=== PATIENT | male | born 1980 | race African-American/Black ===

== ENCOUNTER 2016-09-04 23:36 | Emergency (ER) | payer SELFPAY ==
[2016-09-05 00:09] VITALS: BP 142/76
--- NOTE | 2016-09-07 09:36 | EKG REPORT ---
SEVERITY:- NORMAL ECG - SINUS RHYTHM : Confirmed by: Jonas Barry 07-Sep-2016 09:35:40
== END 2016-09-05 04:00 | disposition left against medical advice (07) ==
LOC: ER 23:36
DX: Z53.9 Procedure and treatment not carried out, unspecified reason (principal); R07.9 Chest pain, unspecified
CPT/HCPCS: 93005; 93010

== ENCOUNTER 2017-12-27 10:32 | Emergency (ER) | payer SELFPAY ==
[2017-12-27 10:41] VITALS: BP 140/69
--- NOTE | 2017-12-27 10:50 | ER Document Report ---
HPI - HPI Pain Level: 2 Notes: Patient is a 37-year-old male with a history of eczema who presents to the ED complaining of exacerbation of his eczema to his flexural areas on his arms and a little bit to his neck with associated intermittent pruritis. Patient states that the weather changes cause exacerbation. Patient states that he was given betamethasone as visit last year which he used sparingly and works really well for him. Patient is requesting this cream again. He has no other significant past medical history. He is eating and drinking without any difficulties. He is urinating normally and having normal bowel movements. Denies any insect bite , new clothes, detergents, soaps, or travel. Denies any headache, fever, neck pain, URI, sore throat, chest pain, palpitations, syncope, cough, shortness of breath, wheeze, dyspnea, abdominal pain, nausea/vomiting/diarrhea, urinary retention, dysuria, hematuria. - ROS Systems Reviewed and Negative: Yes All other systems reviewed and negative - CONSTITUTIONAL Constitutional: DENIES: Fever, Chills - EENT EENT: DENIES: Sore Throat, Ear Pain, Eye problems - NEURO Neurology: DENIES: Headache, Weakness, Vision blurred, Dizzinesss / Vertigo - CARDIOVASCULAR Cardiovascular: DENIES: Chest pain - RESPIRATORY Respiratory: DENIES: Trouble Breathing, Coughing - GASTROINTESTINAL Gastrointestinal: DENIES: Abdominal Pain, Black / Bloody Stools - MUSCULOSKELETAL Musculoskeletal: DENIES: Extremity pain Past Medical History - Social History Smoking Status: Never Smoker Chew tobacco use (# tins/day): No Frequency of alcohol use: None Drug Abuse: None Family History: Reviewed & Not Pertinent Patient has suicidal ideation: No Patient has homicidal ideation: No Renal/ Medical History: Denies: Hx Peritoneal Dialysis - Immunizations Immunizations up to date: Yes Hx Diphtheria, Pertussis, Tetanus Vaccination: Yes Vertical Provider Document - CONSTITUTIONAL Agree With Documented VS: Yes Notes: PHYSICAL EXAMINATION: GENERAL: Well-appearing, well-nourished and in no acute distress. HEAD: Atraumatic, normocephalic. EYES: Pupils equal round and reactive to light, extraocular movements intact, sclera anicteric, conjunctiva are normal. ENT: Nares patent and without discharge. oropharynx clear without exudates. No tonsilar hypertrophy or erythema. Moist mucous membranes. NECK: Normal range of motion, supple without lymphadenopathy LUNGS: Breath sounds clear to auscultation bilaterally and equal. No wheezes rales or rhonchi. HEART: Regular rate and rhythm without murmurs, rubs, gallops. Musculoskeletal: FROM to passive/active. Strength 5+/5. Extremities: No cyanosis, clubbing, or edema b/l. Peripheral pulses 2+. Capillary refill less than 3 seconds. NEUROLOGICAL: Normal speech, normal gait. PSYCH: Normal mood, normal affect. SKIN: dry eczematous rash to the flexural areas to the arms and minimally to the inferior neck. Non-tender. No abscess/fluctuance, induration, streaks, or purulence. - INFECTION CONTROL TRAVEL OUTSIDE OF THE [place] IN LAST 30 DAYS: No Course - Re-evaluation Re-evalutation: 12/27/17 10:54 Patient is an afebrile, well-hydrated, 37-year-old male who presents to the ED with a rash which I suspect to be eczema. Vitals are acceptable without any significant tachycardia, tachypnea, or hypoxia. PE is otherwise unremarkable. No labs or imaging warranted at this time based on H&P. Patient declined any steroid injection or oral steroid medications. Patient is just requesting the betamethasone that he was given last year. I will refill this for him which he uses as needed. Conservative measures for symptoms. Recheck with your PCM in 3 -5 days. Consider consult with dermatology. Return to the ED with any worsening/concerning symptoms otherwise as reviewed in discharge. Patient is in agreement. - Vital Signs Vital signs: Temp Pulse Resp BP Pulse Ox 98.4 F 89 16 140/69 H 96 12/27/17 10:39 12/27/17 10:39 12/27/17 10:39 12/27/17 10:39 12/27/17 10:39 Discharge - Discharge Clinical Impression: Eczema Qualifiers: Eczema type: flexural Qualified Code(s): L20.82 - Flexural eczema Condition: Stable Disposition: HOME, SELF-CARE Instructions: Atopic Dermatitis (Eczema) ([facility]) Additional Instructions: Keep the skin clean Wash with mild soap and water Tylenol/ibuprofen if needed Monitor for any worsening symptoms Recheck with your PCM in 3-5 days Consider consult with dermatology for ongoing/worsening symptoms Return to the ED with any worsening symptoms and/or development of fever, headache, chest pain, palpitations, syncope, shortness of breath, trouble breathing, abdominal pain, n/v/d, abscess, purulent discharge, red streaks, worsening swelling, or other worsening symptoms that are concerning to you. Prescriptions: Betamet Diprop/Prop Gly [Betamethasone Dp Aug 0.05% Cream] 1 applic TP BID #1 tube Forms: Elevated Blood Pressure, Smoking Cessation Education Referrals: EDUARDO JOHNSON DO [ACTIVE STAFF] - Follow up as needed
== END 2017-12-27 10:57 | disposition home or self-care (01) ==
LOC: ER 10:32
DX: L20.82 Flexural eczema (principal)
CPT/HCPCS: 99282

== ENCOUNTER 2018-03-20 22:28 | Emergency (ER) | payer SELFPAY ==
[2018-03-20 22:51] VITALS: BP 140/82
--- NOTE | 2018-03-20 23:12 | ER Document Report ---
ED General - General Chief Complaint: Skin Problem Stated Complaint: SKIN PROBLEMS Time Seen by Provider: 03/20/18 23:00 Notes: Patient is a 37-year-old male who presents with complaint of a rash. He said this rash since he was a kid. He has been told his eczema several times. Says that she is on his back and also on the extensor surfaces of his arms. Says gets worse in his back when he is sitting against a leather seats in his car. He says sometimes sweat will make it worse. He is on betamethasone cream. Usually comes here when he runs out. He says he is run out again and needs more. Said it does help with not fully taken away. He is requesting if there is something else he can do. He says he does use using cream. He is never seen a curriculum developer about this. He denies any fevers. No vomiting. TRAVEL OUTSIDE OF THE [place] IN LAST 30 DAYS: No - Related Data Allergies/Adverse Reactions: Penicillins Allergy (Verified 12/27/17 10:34) Past Medical History - Social History Smoking Status: Never Smoker Frequency of alcohol use: None Drug Abuse: None Family History: Reviewed & Not Pertinent Renal/ Medical History: Denies: Hx Peritoneal Dialysis - Immunizations Immunizations up to date: Yes Hx Diphtheria, Pertussis, Tetanus Vaccination: Yes Review of Systems - Review of Systems Notes: My Normal Review Basic REVIEW OF SYSTEMS: CONSTITUTIONAL : Denies fever, chills, or sweats. Denies recent illness. RESPIRATORY: Denies cough, cold, or chest congestion. Denies shortness of breath, difficulty breathing, or wheezing. GASTROINTESTINAL: Denies abdominal pain. Denies nausea, vomiting, or diarrhea. MUSCULOSKELETAL: Denies neck or back pain or joint pain or swelling. SKIN: Rash ALL OTHER SYSTEMS REVIEWED AND NEGATIVE. Physical Exam - Vital signs Vitals: Temp Pulse Resp BP Pulse Ox 98.3 F 76 16 140/82 H 96 03/20/18 22:49 03/20/18 22:49 03/20/18 22:49 03/20/18 22:49 03/20/18 22:49 - Notes Notes: General Appearance: Well nourished, alert, cooperative, no acute distress, no obvious discomfort. well appearing Vitals: reviewed, See vital signs table. Eyes: PERRL, EOMI, Conjuctiva clear Skin: blanchable mild eyrthematous skin erruption scattered across the back, abdomen, and over extensor services of arms. Non painful to palpation. is puritic Neuro: speech clear, oriented x 3, normal affect, responds appropriately to questions. Course - Re-evaluation Re-evalutation: 03/20/18 23:34 I feel the patient is safe to be discharged home. Patient looks well. Patient has a rash that is chronic recurring. I informed him the importance of following up with dermatology. Informed him that I would re-prescribe his betamethasone cream but he must use it sparingly. I talked him at length about using non-perfumed non-dyed soaps that have lotion in them. I encouraged him to return to ER if he has any skin breakdown, fevers, or feels unwell. Patient agrees with plan and will be discharged home. Dictation of this chart was performed using voice recognition software; therefore, there may be some unintended grammatical errors. - Vital Signs Vital signs: Temp Pulse Resp BP Pulse Ox 98.3 F 76 16 140/82 H 96 03/20/18 22:49 03/20/18 22:49 03/20/18 22:49 03/20/18 22:49 03/20/18 22:49 Discharge - Discharge Clinical Impression: Rash Condition: Good Disposition: HOME, SELF-CARE Additional Instructions: Apply a thin layer of the betamethasone cream to your rash daily. Please do not apply more than once a day or your skin will thin and become more irritated. Please follow up with a curriculum developer for reevaluation. Please continue to use Eucerin cream. please return to the ER if you have fevers or break down of your skin. Please use soaps that have lotion and are dye free and perfume free. Prescriptions: Betamet Diprop/Prop Gly [Betamethasone Dp Aug 0.05% Cream] 1 applic TP DAILY PRN #1 tube PRN Reason:
== END 2018-03-20 23:26 | disposition home or self-care (01) ==
LOC: ER 22:28
DX: R21 Rash and other nonspecific skin eruption (principal)
CPT/HCPCS: 99283

== ENCOUNTER 2019-09-14 16:51 | Emergency (ER) | payer SELFPAY ==
[2019-09-14 16:57] VITALS: BP 160/105
[2019-09-14] MEDS ORDERED: DIPH/PERTUSS(ACELL)/TETANUS VAC/PF 0.5 ML SYR (>=10YO) IM ONE (17:26)
--- NOTE | 2019-09-14 17:46 | RADIOLOGY REPORT (SQ) ---
EXAM DESCRIPTION: FOOT RIGHT COMPLETE IMAGES COMPLETED DATE/TIME: 09/14/2019 5:38 pm REASON FOR STUDY: stepped on nail COMPARISON: None. NUMBER OF VIEWS: Three views. TECHNIQUE: AP, lateral and oblique radiographic images acquired of the right foot. LIMITATIONS: None. FINDINGS: MINERALIZATION: Normal. BONES: No acute fracture or dislocation. JOINTS: The normal tarsometatarsal alignment is preserved. SOFT TISSUES: No soft tissue swelling or radiopaque foreign body. OTHER: No other finding. IMPRESSION: No acute osseous abnormality of the right foot. TECHNICAL DOCUMENTATION: JOB ID: [id number] 2010 [employer]- All Rights Reserved Reading location - IP/workstation name: [email or web address]
[2019-09-14] MEDS ORDERED: CIPROFLOXACIN HCL/DEXAMETH OTIC DROP 7.5 ML AD ONE (18:25)
--- NOTE | 2019-09-14 18:27 | ER Document Report ---
HPI - HPI Time Seen by Provider: 09/14/19 17:17 Pain Level: 3 Context: Patient is a 39-year-old male who presents the emergency department with 2 complaints. His first complaint is that he stepped on a joana nail prior to arrival. Patient is unsure if he is up-to-date with his tetanus immunization. He also has complaints of right ear pain. States that his been following him for about a week. He has been using [id number] drops, but has not had any relief of his pain. - ROS Systems Reviewed and Negative: Yes All other systems reviewed and negative - CONSTITUTIONAL Constitutional: DENIES: Fever, Chills - EENT EENT: REPORTS: Ear Pain - Right. DENIES: Sore Throat, Nasal Drainage-Clear, Nasal Drainage-Purulent, Congestion, Eye problems - REPRODUCTIVE Reproductive: DENIES: : - MUSCULOSKELETAL Musculoskeletal: REPORTS: Extremity pain - Right foot. DENIES: Swelling - DERM Skin Color: Normal Skin Problems: Puncture Wound - Right foot Past Medical History - General Information source: Patient - Social History Smoking Status: Current Every Day Smoker Chew tobacco use (# tins/day): No Frequency of alcohol use: Social Drug Abuse: None Family History: Reviewed & Not Pertinent Patient has homicidal ideation: No Renal/ Medical History: Denies: Hx Peritoneal Dialysis - Immunizations Immunizations up to date: Yes Hx Diphtheria, Pertussis, Tetanus Vaccination: Yes Vertical Provider Document - CONSTITUTIONAL Agree With Documented VS: Yes Exam Limitations: No Limitations General Appearance: No Apparent Distress - INFECTION CONTROL TRAVEL OUTSIDE OF THE [place] IN LAST 30 DAYS: No - HEENT HEENT: Atraumatic, Normocephalic, PERRLA, Tympanic Membrane Red. negative: Conjuctival Injection, Pharyngeal Exudate, Pharyngeal Tenderness, Pharyngeal Erythema, Tympanic Membrane Bulging Notes: Erythema noted to right external auditory canal Course - Re-evaluation Re-evalutation: 09/14/19 Patient's physical exam and history is consistent with otitis externa. Patient will be placed on Ciprodex drops. I do not suspect patient has mastoiditis, as there is no pain at the mastoid process. Patient also has erythema noted to the left tympanic membrane. We will start the patient on Keflex. This will cover his puncture wound. He received his tetanus vaccine here in the emergency department. Follow-up precautions were given. Verbal discharge instructions were given to the patient. They verbalized understanding. They are stable for discharge. - Vital Signs Vital signs: Temp Pulse Resp BP Pulse Ox 98.6 F 113 H 16 160/105 H 92 09/14/19 16:55 09/14/19 16:55 09/14/19 16:55 09/14/19 16:55 09/14/19 16:55 Discharge - Discharge Clinical Impression: Puncture wound Otitis externa Qualifiers: Otitis externa type: unspecified type Chronicity: acute Laterality: right Qualified Code(s): H60.501 - Unspecified acute noninfective otitis externa, right ear Otitis media Qualifiers: Otitis media type: suppurative Chronicity: acute Laterality: right Recurrence: not specified as recurrent Spontaneous tympanic membrane rupture: without spontaneous rupture Qualified Code(s): H66.001 - Acute suppurative otitis media without spontaneous rupture of ear drum, right ear Condition: Stable Disposition: HOME, SELF-CARE Instructions: Use of Ear Drops ([facility]), Otitis Externa ([facility]) Additional Instructions: You were seen today in the emergency department for ear pain and a puncture wound. Your x-ray was normal. Please take your antibiotics as prescribed. You also have an inner and outer ear infection. Take the oral antibiotics as prescribed. For your outer ear infection, placed 4 drops to your affected ear twice a day for 7 days. Follow-up with 1 of the clinics if needed for regular check ups. Prescriptions: Cephalexin [Keflex] 500 mg PO BID #14 capsule Referrals: [facility] [Provider Group] - Follow up as needed [facility] [Provider Group] - Follow up as needed
== END 2019-09-14 18:45 | disposition home or self-care (01) ==
LOC: ER 16:51
DX: S91.331A Puncture wound without foreign body, right foot, initial encounter (principal); W45.0XXA Nail entering through skin, initial encounter; H60.501 Unspecified acute noninfective otitis externa, right ear; H66.001 Acute suppurative otitis media without spontaneous rupture of ear drum, right ear; F17.200 Nicotine dependence, unspecified, uncomplicated; Z23 Encounter for immunization
CPT/HCPCS: 99283; 90471; 73630; 90715; J3490

== ENCOUNTER → 2019-11-06 | Outpatient (CLI) | payer OTHER ==
[2019-11-06 11:11] LABS: ABSOLUTE BASOPHILS # (AUTO) 0.1 10^3/uL (0.0-0.2); ABSOLUTE EOSINOPHILS # (AUTO) 0.2 10^3/uL (0.0-0.6); ABSOLUTE LYMPHOCYTES (AUTO) 1.9 10^3/uL (0.5-4.7); ABSOLUTE MONOCYTES (AUTO) 0.4 10^3/uL (0.1-1.4); ABSOLUTE NEUT (AUTO) 4.4 10^3/uL (1.7-8.2); BASOPHILS % (AUTO) 0.9 % (0-2); EOSINOPHILS % (AUTO) 3.2 % (0-6); HEMATOCRIT 41.4 % (37.9-51.0); HEMOGLOBIN 14.6 g/dL (13.5-17.0); LYMPHOCYTES % (AUTO) 27.4 % (13-45); MEAN CORPUSCULAR HEMOGLOBIN 27.9 pg (27.0-33.4); MEAN CORPUSCULAR HGB CONC 35.3 g/dL (32.0-36.0); MEAN CORPUSCULAR VOLUME 79 fl (80-97); MONOCYTES % (AUTO) 6.3 % (3-13); PLATELET COUNT 239 10^3/uL (150-450); RED BLOOD COUNT 5.25 10^6/uL (4.35-5.55); RED CELL DISTRIBUTION WIDTH 14.5 % (11.5-14.0); SEGMENTED NEUTROPHILS % (AUTO) 62.2 % (42-78); TOTAL CELLS COUNTED % (AUTO) 100 %; WHITE BLOOD COUNT 7.1 10^3/uL (4.0-10.5)
[2019-11-06 11:17] LABS: APPEARANCE,URINE CLEAR; BILIRUBIN,URINE NEGATIVE (NEGATIVE); COLOR,URINE YELLOW; GLUCOSE, URINE NEGATIVE (NEGATIVE); KETONES,URINE NEGATIVE (NEGATIVE); LEUKOCYTE ESTERASE,URINE TRACE (NEGATIVE); NITRITE,URINE NEGATIVE (NEGATIVE); PROTEIN,URINE NEGATIVE (NEGATIVE); URINE SPECIFIC GRAVITY 1.017; UROBILINOGEN,URINE NEGATIVE mg/dL (<2.0)
[2019-11-06 11:39] LABS: ALBUMIN 4.1 g/dL (3.5-5.0); ALKALINE PHOSPHATASE 60 U/L (38-126); ANION GAP 7 (5-19); ASPARTATE AMINO TRANSFERASE 26 U/L (17-59); BILIRUBIN,TOTAL 0.5 mg/dL (0.2-1.3); BLOOD UREA NITROGEN 11 mg/dL (7-20); CALCIUM 9.1 mg/dL (8.4-10.2); CARBON DIOXIDE 27 mmol/L (22-30); CHLORIDE 104 mmol/L (98-107); GLUCOSE 102 mg/dL (75-110); POTASSIUM 4.2 mmol/L (3.6-5.0); TOTAL PROTEIN 7.2 g/dL (6.3-8.2); TRIGLYCERIDES 150 mg/dL (<150)
[2019-11-06 11:49] LABS: DIRECT LDL 130 mg/dL (<100)
== END ==
LOC: CCC 09:41
PROVIDERS: ATTEND Family Medicine
DX: Z13.9 Encounter for screening, unspecified (principal)
CPT/HCPCS: 36415; 80053; 80061; 81001; 83036; 84443; 85025